=== PATIENT | male | born 2000 | race Caucasian/White ===

== ENCOUNTER 2023-06-05 00:51 | Emergency (ER) | payer MEDICAID ==
[~2023-06-05] VITALS: Ht 175.3 cm; Wt 65.9 kg
[2023-06-05] MEDS ORDERED: NO HOME MEDS (01:12)
--- NOTE | 2023-06-05 01:12 | NUR ---
PRESSURE DRESSING APPLIED TO OZZING RIGHT FOREARM WOUND.
[2023-06-05] MEDS ORDERED: bacitracin 15gm ointment TP ONE (01:35)
[2023-06-05] MEDS ORDERED: LIDOcaine 1% W/epiNEPHrine 1:100,000 20ml vial IJ ONE (01:35)
[2023-06-05] MEDS ORDERED: ondansetron 4mg rapidly disintigrating tab PO STA (02:03)
[2023-06-05 02:58] VITALS: BP 110/70
== END 2023-06-05 02:55 | disposition home or self-care (01) ==
LOC: ER 00:51
DX: S51.811A Laceration without foreign body of right forearm, initial encounter (principal); X58.XXXA Exposure to other specified factors, initial encounter; Y93.89 Activity, other specified; Y92.89 Other specified places as the place of occurrence of the external cause; Y99.8 Other external cause status
CPT/HCPCS: 12002; 12032; 73090; 73120; 99284; A6258; A6446; A6449